=== PATIENT | female | born 1960 | race Caucasian/White ===

== ENCOUNTER → 2017-07-20 | Outpatient (CLI) | payer BC ==
--- NOTE | 2017-07-20 15:39 | DI ---
MRI RIGHT KNEE SCAN, 07/20/2017 1:05 PM: Clinical History: Right knee pain. Previous Exam: None at this facility. Technique: Axial, coronal, and sagittal PD and fat saturated PD; axial T1 weighted. There is no soft tissue edema. There are artifacts generated by a metallic object presumably in the s oft tissues medial to the patellar tendon at the level of the medial retinaculum. A small joint effus ion is present. There is a focus of increased signal intensity in the central portion of the medial f emoral condyle as well as in the subchondral region along the medial margin of the medial tibial plat eau. These foci of hyperintensity are consistent with bone contusions. The medial retinaculum and med ial patellofemoral ligament are difficult to evaluate because of the metallic artifacts but there is lateral subluxation of the patella with attenuation of the medial patellofemoral ligament. The medial and lateral collateral ligaments are normal. The anterior cruciate ligament is not well identified a nd this patient probably has rupture of the posterolateral bundle of the anterior cruciate ligament a nd a partial tear of the anteromedial bundle. There is a partial tear of the upper third of the poste rior cruciate ligament. The lateral meniscus is normal. This patient either has had a partial menisce ctomy or there is extensive fraying on the inner margin of the meniscus. There is a flap tear of the medial meniscus at the junction of the body and posterior horn. The quadriceps and popliteus tendons and the tendons of the medial and lateral heads of the gastrocnemius muscle are normal. Focal tendino sis is present in the proximal and distal portions of the patellar tendon. The articular surfaces of the patellofemoral compartment are intact. There is a focal grade 3 and possibly a grade 4 chondromal acia of the central portion of the lateral tibial plateau with a grade 2 chondromalacia of the latera l femoral condyle. Grade 3 chondromalacia changes are present in the central portion of the medial ti bial plateau in the medial femoral condyle. Readin. Small joint effusion. Bone contusions are present in the medial femoral condyle and the medial ma rgin of the medial tibial plateau. Grade 3 chondromalacia is present involving the cartilaginous surf aces of the medial compartment. There is a grade 3 and probably grade 4 chondromalacia of the lateral tibial plateau with a grade 2 chondromalacia of the lateral femoral condyle. This patient either has had a prior medial meniscectomy or there is extensive fraying present on the inner margin of the med ial meniscus. There is a flap tear at the junction between the posterior horn and body of the medial meniscus. There is a tear of the ACL and PCL. There is lateral subluxation of the patella without dis ruption of the articular cartilaginous surfaces. There is tendinosis of the proximal and distal porti ons of the patellar tendon. 2. The MCL, LCL, lateral meniscus, and the quadriceps and popliteus tendons and the tendons of the m edial and lateral heads of the gastrocnemius muscle are normal.
== END ==
LOC: MRI 12:58
PROVIDERS: ATTEND Physician Assistant Surgical
DX: M25.561 Pain in right knee (principal); M25.461 Effusion, right knee; M94.261 Chondromalacia, right knee; M23.221 Derangement of posterior horn of medial meniscus due to old tear or injury, right knee; S83.511A Sprain of anterior cruciate ligament of right knee, initial encounter; S83.521A Sprain of posterior cruciate ligament of right knee, initial encounter
CPT/HCPCS: 73721

== ENCOUNTER 2019-05-29 05:55 | Inpatient (IN) ==
[2019-05-29] MEDS ORDERED: LIDOCAINE W/ SODIUM BICARB 0.5 ML SYR SUBD ONE (06:00)
[2019-05-29] MEDS ORDERED: Lactated Ringers 1,000 ML PRIMARY IV SCH ×2 (06:00→10:45)
[2019-05-29] MEDS ORDERED: GABAPENTIN 300 MG CAPSULE PO ONE ×2 (06:00→06:03)
[2019-05-29] MEDS ORDERED: PANTOPRAZOLE 20 MG TABLET.DR PO ONE ×2 (06:00→06:02)
[2019-05-29] MEDS ORDERED: ACETAMINOPHEN 500 MG TABLET PO ONE ×2 (06:00→06:02)
[2019-05-29] MEDS ORDERED: Nasal Sanitizer POPSWAB ampule 3 AMP (Nozin) PREOP DOSE ENOS SCH (06:00)
[2019-05-29] MEDS ORDERED: Clindamycin 900mg (Premix) 900 MG/50 ML BAG IV ONE ×2 (06:00→06:03)
[2019-05-29] MEDS ORDERED: CELECOXIB 200 MG CAPSULE PO ONE ×2 (06:00→06:02)
[2019-05-29] MEDS ORDERED: LIDOCAINE W/ SODIUM BICARB 0.5 ML SYR ONE (06:03)
[2019-05-29] MEDS ORDERED: Lactated Ringers 1,000 ML PRIMARY IV ONE ×2 (06:03→09:21)
[2019-05-29 06:23] LABS: BILIRUBIN,URINE NEGATIVE (NEG); CLARITY,URINE CLEAR (CLEAR); COLOR,URINE YELLOW (Y); GLUCOSE, URINE (UA) NEGATIVE (NEG); OCCULT BLOOD,URINE Trace-intact (NEG); PH,URINE 5.5 (5.0-8.5); PROTEIN,URINE NEGATIVE (NEG); UROBILINOGEN,URINE 0.2 EU/dL (0.2)
[2019-05-29 06:24] LABS: URINE SAMPLE TYPE CLEAN CATCH URINE
[2019-05-29] MEDS ORDERED: Sodium Chloride 0.9% vial 40 ML ONE (06:59)
[2019-05-29] MEDS ORDERED: BACITRACIN 50,000 UNIT VIAL IRRIG ONE (06:59)
[2019-05-29] MEDS ORDERED: BUPivacaine Liposome/PF (Exparel) Inj 20ml vial INFIL ONE (06:59)
[2019-05-29] MEDS ORDERED: Ketorolac Inj 30 MG, Morphine Inj (Ortho Cocktail) 4 MG, BUPivacaine Inj 0.25% PF 150 MG SPLASH ONE ×3 (07:00)
[2019-05-29] MEDS ORDERED: MIDAZOLAM HCL 2 MG/2 ML VIAL ONE (07:05)
[2019-05-29] MEDS ORDERED: fentaNYL Inj 100 MCG/2 ML VIAL ONE (07:05)
[2019-05-29] MEDS ORDERED: BUPivacaine Inj 0.5% PF (5mg/ml) 30ml vial ONE (07:10)
[2019-05-29] MEDS ORDERED: BUPivacaine Inj 0.5% PF (5mg/ml) 10ml vial ONE (07:10)
[2019-05-29] MEDS ORDERED: Propofol 1,000 MG/100 ML VIAL IV ONE ×2 (07:30→09:11)
[2019-05-29] MEDS ORDERED: TRANEXAMIC ACID 1,000 MG / 10 ML VIAL ONE (09:06)
[2019-05-29] MEDS ORDERED: KETOROLAC 30 MG/1 ML VIAL ONE (10:12)
[2019-05-29] MEDS ORDERED: ONDANSETRON 4 MG/2 ML VIAL ONE ×2 (10:12→11:16)
--- NOTE | 2019-05-29 10:31 | CRNA.PROGR ---
Anesthesia Time - Procedure/Recovery Time Start Date: 05/29/19 End Date: 05/29/19 Anesthesia : Time In: 07:56 Anesthesia : Time Out: 10:26 Anesthesia : Total Time: 150 - Block Time Start Date: 05/29/19 End Date: 05/29/19 PreOp Block : Time In: 07:10 PreOp Block : Time Out: 07:24 PreOp Block : Total Time: 14 - Total Anesthesia Time Total Anesthesia Time (minutes): 164 - Other Weight: 104.78 kg Height: 5 ft 8 in Body Mass Index (BMI): 35.1 Anesthesia Type: Spinal Block, MAC
--- NOTE | 2019-05-29 10:32 | CRNA.PROGR ---
Post Anesthesia Phase II - Post Anesthesia Phase II Patient Stable and Discharged To: Phase II Care Assumed By Surgeon: Rudi Abraham MD Temperature: 96.8 F Pulse Rate: 77 Respiratory Rate: 16 Blood Pressure: 189/81 Pulse Ox: 94 Post Anesthesia Discharge Criteria Met: Yes
--- NOTE | 2019-05-29 10:32 | CRNA.PROCE ---
Nerve Block Documentation - - Type of Nerve Block Used: Right Adductor Canal Nerve Block Position for Nerve Block: Supine Moniters Used During Block: EKG, SPO2, NIBP Oxygen Supplemented: Yes Sedation Used - Enter Amount in Comment Field [ANES.SEDAT]: Midazolam (mg): Yes (2), Fentanyl (mcg): Yes (100) Skin Prep Used: ChloroPrep Draped: No Nerve Block Needle Used: 80 mm ProBlk II - - PreOp Block : Time In: 07:10 PreOp Block : Time Out: 07:24 Anesthesia Time - Block Time PreOp Block : Time In: 07:10 PreOp Block : Time Out: 07:24 - Other Weight: 104.78 kg Height: 5 ft 8 in Body Mass Index (BMI): 35.1
[2019-05-29] MEDS ORDERED: MORPHINE SULFATE 2 MG/1 ML IVP PRN (10:33)
[2019-05-29] MEDS ORDERED: fentaNYL Inj 100 MCG/2 ML VIAL IVP PRN (10:33)
[2019-05-29] MEDS ORDERED: LIDOCAINE W/ SODIUM BICARB 0.5 ML SYR SUBD PRN (10:33)
[2019-05-29] MEDS ORDERED: HYDROmorphone 2 MG/1 ML IVP PRN (10:33)
--- NOTE | 2019-05-29 10:35 | ORTHO.OP ---
Surgery Date: 05/29/19 Preoperative Diagnosis: right knee OA Postoperative Diagnosis: same Procedure: right TKA Surgeon: Rudi Abraham MD [employer] Impaired: Ilana Iraheta PARoge Anesthesia Provider: Rafael Spencer MD Anesthesia Type: Regional (spinal) Estimated Blood Loss (mL): 200 Fluids: 2300 mL LR Pathology: none Findings: See Operative Note Indications: See Operative Note Complications: None Addendum entered and electronically signed by Ilana Iraheta 05/29/19 10:37: and right adductor canal block
[2019-05-29 10:46] LABS: Hematocrit [HCT] 38.1 % (37.0-47.0); Hemoglobin [HGB] 12.9 g/dL (12.0-16.0)
[2019-05-29] MEDS ORDERED: LIDOCAINE HCL 2 % 10 ML JELLY URO-JECT TOPICAL PRN (11:23)
[2019-05-29] MEDS ORDERED: ONDANSETRON 4 MG/2 ML VIAL IVP PRN (11:23)
[2019-05-29] MEDS ORDERED: HYDROcodone-APAP 7.5 MG-325 MG TABLET PO PRN (11:23)
[2019-05-29] MEDS ORDERED: traMADol 50 MG TABLET PO PRN (12:32)
[2019-05-29] MEDS: IBUPROFEN 800 MG TABLET PO PRN ×2 (13:24→21:03)
[2019-05-29] MEDS: Lactated Ringers 1,000 ML PRIMARY IV SCH ×2 (14:00→23:34)
[2019-05-29] MEDS: Clindamycin 900mg (Premix) 900 MG/50 ML BAG IV SCH ×2 (14:07→21:03)
[2019-05-29] MEDS: DOCUSATE 100 MG CAPSULE PO SCH (21:03)
[2019-05-30] MEDS: Clindamycin 900mg (Premix) 900 MG/50 ML BAG IV SCH (02:03)
[2019-05-30] MEDS: IBUPROFEN 800 MG TABLET PO PRN (05:08)
[2019-05-30 05:14] LABS: Hematocrit [HCT] 33.9 % (37.0-47.0); Hemoglobin [HGB] 11.3 g/dL (12.0-16.0); MEAN CORPUSCULAR HEMOGLOBIN 29.5 PG (27-31); MEAN CORPUSCULAR HGB CONC 33.3 g/dL (33-37); MEAN CORPUSCULAR VOLUME 88.5 FL (81-99); MEAN PLATELET VOLUME 9.5 FL (7.4-12.2); RED BLOOD COUNT 3.83 10^6/uL (4.20-5.40)
[2019-05-30 05:26] LABS: BLOOD UREA NITROGEN 16 mg/dL (7-22); BUN/CREATININE RATIO 22.85 (6-20)
[2019-05-30 07:59] VITALS: BP 134/76; RESP 14; TEMP 99.5; O2SAT 94
[2019-05-30] MEDS ORDERED: ENOXAPARIN SODIUM 30 MG/0.3 ML SYRINGE SUBCUT SCH (09:00)
[2019-05-30] MEDS: DOCUSATE 100 MG CAPSULE PO SCH (10:13)
--- NOTE | 2019-05-30 10:31 | PT.PROG ---
Progress Note Progress Note: S: pt reports she is ready to go home. O: nsg okay'd prior to PT. pt instructed in sit to stand transfer SBA x 1 and walker. pt instructed to ambulate 50 feet with CGA x 1 and walker. pt instructed to ambulate 12 stairs with CGA x 1 and walker. pt ambulated back to room 50 feet with CGA x 1 and walker. pt left in room edge of bed. nursing reports pt doesn't need alarms and is safe to roam around room. A: pt tolerated therapy well. pt is safe to return home at this time able to perform stairs well without LOB. P: safe to return home at this time.
--- NOTE | 2019-05-30 11:19 | ORTHO.PROG ---
Last Taken Vital Signs: Vital Signs - Last Taken Temperature 99.5 F 05/30/19 07:55 Pulse Rate 80 05/30/19 07:55 Respiratory Rate 14 05/30/19 07:55 Blood Pressure 134/76 05/30/19 07:55 Pulse Ox 94 05/30/19 07:55 Subjective: Patient reports she is not having much pain and her pain is controlled with ibuprofen 800 mg currently. She was able to sleep last night. She has been up ambulating without any difficulties. She denies any current nausea, vomiting, calf pain, chest pain, shortness of breath, fevers or chills. She is ready to be discharged home today. Objective: Laboratory Results 05/30/19 05/30/19 04:07 04:07 WBC 10.01 RBC 3.83 L Hgb 11.3 L Hct 33.9 L MCV 88.5 MCH 29.5 MCHC 33.3 RDW Std Deviation 40.5 RDW Coeff of Yelitza 12.9 Plt Count 317 MPV 9.5 Sodium 142 Potassium 4.5 Chloride 109 Carbon Dioxide 25 Anion Gap 8 BUN 16 Creatinine 0.7 Estimated GFR > 60 BUN/Creatinine Ratio 22.85 H Glucose 108 Calculated Osmolality 295.0 H Calcium 9.2 Radiographs of the right knee show status post right TKA with well fixed and positioned components. on exam, the patient is lying comfortably sitting up in the hospital bed. She is alert and oriented 3 and not in any acute distress. The Prevena dressing is in place holding suction. Negative calf tenderness. Neurovascularly intact. Assessment: POD 1 s/p routine Right TKA overall doing well and ready to be discharged home today. Plan: * DVT prophylaxis: Discharged home on aspirin 81 mg daily 6 weeks and portable SCDs * Pain medications: Continue ibuprofen 800 mg 1 tablet every 8 hours as needed for pain. I will give her tramadol 50 mg 1-2 tablets every 6 hours as needed for breakthrough pain. She also has a prescription for hydrocodone to take night if this other pain medication is not working. * Muscle spasms: Discharged home on Flexeril 10 mg 1 tablet every 8 hours as needed * Weightbearing as tolerated with walker * Start outpatient physical therapy by Tuesday since it is a long holiday weekend * wound care: Leave Prevena dressing in place until first PO appointment * Discharge home with a Cryo/Cuff to apply to right knee * discharge home today * Follow up with orthopedics as scheduled in 1 week
--- NOTE | 2019-05-30 12:23 | OTI REPORT ---
Thank you for the referral of Sammy Myers. She was seen on 05/29/19 for an occupational therapy inpatient evaluation status post right total knee arthroplasty. SUBJECTIVE: The patient is a 58-year-old female who reports that she has had a series of right knee issues including three previous surgeries and this being the fourth surgery. 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 The patient currently reports 0/10 pain prior to moving and rates her pain as a 1 to 2/10 on the verbal analog scale (0=no pain, 10=worst pain) with weight bearing. The patient is weight-bearing as tolerated. The patient reports that she lives at home with her children and her who is a PA. The patient has two stairs to get into the house and no stairs within the home except for the basement which she will not be using. The patient has a walk-in shower with a build in seat and hand rails in place. The patient was independent with all ADLs and iADLs at prior level of function. PAST MEDICAL HISTORY: Past medical history can be found in the patient's medical record. OBJECTIVE FINDINGS: Range of motion/Strength: The patient's upper extremity strength and range of motion is within functional limits. Bed mobility: The patient demonstrated the ability to move from supine in bed to sitting edge of bed independently. Activities of daily living: The patient has good quad control at this time and demonstrated the ability to don her undergarments with set up assistance only. The patient completed a toileting task independently to include clothing management, hygiene, and transfer. Transfers: The patient completed a functional sit to stand transfer from edge of bed. Ambulation: The patient ambulated x15 feet to the bathroom with contact guard assist only for safety. Following toileting the patient ambulated an additional 25 feet with stand by assistance only for safety. ASSESSMENT: The patient is eager to return home and has a good prognosis. TREATMENT PLAN: Due to the patient's good mobility and independence with lower extremity dressing, toileting, and ambulation at the time of evaluation, the patient will be discharged and will not benefit from skilled occupational therapy services. INITIAL TREATMENT: Treatment today consisted of the occupational therapy initial evaluation only. Following treatment the patient was left in bed with SCDs in place, call light within reach, and bed alarm set. The patient reported 0/10 pain upon returning to bed and only 2/10 pain with weight-bearing. MTDD
--- NOTE | 2019-05-30 14:37 | PTI REPORT ---
Thank you for the referral of Sammy Myers. She was seen on 05/29/19 for an inpatient evaluation status post right total knee arthroplasty. SUBJECTIVE: The patient is a 58-year-old female who underwent a right total knee replacement earlier this morning. The patient reports that she is doing fantastic and is wanting to get up with therapy staff. She currently reports a pain level of 1/10 on the verbal analog scale (0=no pain, 10=worst pain) and denies any numbness into her right lower extremity and she is able to lift her right lower extremity independently. The patient reports that she lives here in [place] with her family. She states that she has one step into her home and otherwise everything she needs to access is on her main floor. She has steps into her basement but doesn't need to use those. The patient reports that she was not using any assistive device prior to her surgery and denies any recent falls. PAST MEDICAL HISTORY: Past medical history can be found in the patient's medical record. OBJECTIVE FINDINGS: General observations: The patient was alert and oriented to setting upon PT arrival. The patient's supine blood pressure was 147/78. Her heart rate was 75 beats per minute. Her oxygen saturation was 93% on room air. Bed mobility: The patient was able to transfer from supine in bed to seated edge of bed position with stand by assist x1 for safety. Once in a seated edge of bed position the patient demonstrated good seated balance and denied any lightheadedness or dizziness. Her blood pressure was 148/81, her oxygen saturation was 96%, and her heart rate was 84 beats per minute. Once the patient was finished with ambulation activity she transferred back into bed with stand by assist x1 for safety. Transfers: The patient did have a front wheeled walker with her so we did adjust that to her proper height and the patient was able to transfer from seated edge of bed to standing with contact guard assist x1 for safety. Ambulation: Once in a standing position the patient was able to ambulate 150 feet with the front wheeled walker. She did need cues at time to properly use the walker and did require assist of two due to her IV that she still had in place. ASSESSMENT: The patient has good rehab potential and is very motivated. Problem List: Pain in the right knee Decreased range of motion of the right knee Weakness Antalgic gait Short-Term Goals: To be met by discharge from inpatient: Patient will be able to transfer from bed to stand safely and independently. Patient will be able to ambulate at least 150 feet with front wheeled walker safely and independently. Patient will be able to ambulate up and down at least five stairs with walker safely and independently. Long-Term Goals: To be met following discharge from inpatient: Patient will be seen by outpatient physical therapy for post op total knee care. TREATMENT PLAN: Patient will be seen B.I.D during the week and one time per day over the weekend as an inpatient to address the above goals and objectives. The patient will most likely be discharged tomorrow morning after she completes her stair activity. INITIAL TREATMENT: Treatment today consisted of the initial evaluation and one unit of functional activity. Following treatment the patient was left in bed with with CPM underneath her right lower extremity with settings of 0 to 90 degrees of motion. Bed alarm was set and call light was left within reach. MTDD
--- NOTE | 2019-05-30 14:44 | PT PM DAY ---
Diagnosis : Right Total Knee Arthroplasty PM - Physical Therapy S: The patient states she is doing well this afternoon. She is having a little bit more pain into her right lower extremity and still does have her IV in place but would like to get up and do some more moving. She reports that she feels comfortable with whatever therapy's recommendation is; whether she spends the night tonight or is discharged home as she states that the doctor was in and states that she could go home today. We did discuss the pros and cons of going home and she does have the IV still in place and we would like to further monitor her pain at least overnight and have her do stairs in the morning. The patient and her are very receptive to this. The therapist did also discuss this with the patient's nurse and we are all in agreement that it will be best for the patient to spend the night and then further assess in the morning with her pain and how well she does with her stairs. O: The patient transferred from bed to stand with stand by assist x1. The patient ambulated 150 feet with assist for her lines and leads with the front wheeled walker and demonstrated improved ambulation and safety with her front wheeled walker this afternoon. The patient then transferred back into bed and was instructed on quad sets x10, heel slides x10, straight leg raises x10, hip abduction/adduction x10, short arc quads x10, and ankle dorsiflexion and plantarflexion x10 on the right lower extremity. After the patient completed the activities, the CPM was placed back on her right lower extremity and the patient's bed alarm was set and call light was placed within reach. A: The patient is doing very well. She demonstrates improved mobility and safety with her front wheeled walker. Due to her IV still being in place and wanting to monitor her pain, we will see her in the AM for a session to assess how well she is doing with stairs and instruct her how to properly do stairs with the walker. P: Patient will be seen tomorrow morning for stair training. If the patient is doing well she will discharge home at that time. ANANTH
--- NOTE | 2019-05-30 16:25 | DI ---
XR KNEE 1 OR 2 VWS 05/29/2019 10:27 AM HISTORY: [facility] [place]right [place] OA Comparison: 05/07/2019. Findings: Portable AP and crosstable lateral views of the right knee are submitted. The patient is st atus post total knee arthroplasty. There is no evidence of hardware fracture or loosening. There is n o acute fracture or dislocation. There is gas in the soft tissues and joint space, an expected findin g in the immediate postoperative timeframe. A wound VAC projects over the anterior aspect of the dist al thigh. Impression: 1. Status post total knee arthroplasty. Correlate with desired surgical outcome.
== END 2019-05-30 11:18 | disposition home or self-care (01) | DRG 470 ==
LOC: OR 05:55 → OPS 06:16 → MED/SURG 11:05
PROVIDERS: ADMIT Orthopaedic Surgery; ATTEND Orthopaedic Surgery